=== PATIENT | female | born 1940 | race African-American/Black ===

== ENCOUNTER 2018-11-09 11:29 | Inpatient (IN) | payer OTHER ==
[~2018-11-09] VITALS: Ht 157.5 cm; Wt 46.7 kg
[2018-11-09 12:08] LABS: BASOPHILS % (AUTO) 0.2 % (0.0-5.0); HEMATOCRIT 28.7 % (36-48); LYMPHOCYTES % (AUTO) 7.4 % (21.0-51.0); MEAN CORPUSCULAR HEMOGLOBIN 29.9 pg (27.0-33.0); MEAN CORPUSCULAR HGB CONC 32.7 g/dL (32.0-36.0); MEAN CORPUSCULAR VOLUME 91.5 fL (79-99); MONOCYTES % (AUTO) 4.4 % (3.0-13.0); PLATELET COUNT (AUTO) 234 K/uL (130-400); RED BLOOD CELL COUNT(AUTO) 3.14 MIL/uL (4.00-5.50); RED CELL DISTRIBUTION WIDTH 14.1 % (11.0-15.5); WHITE BLOOD COUNT (AUTO) 11.7 K/uL (4.8-10.8)
[2018-11-09 12:21] LABS: INR 1.04 (0.85-1.15); PARTIAL THROMBOPLASTIN TIME 22.2 SEC (26.3-35.5); PROTHROMBIN TIME 10.9 SEC (9.6-11.6)
[2018-11-09 12:22] LABS: ALBUMIN 3.9 g/dL (3.5-5.0); BILIRUBIN,TOTAL 0.6 mg/dL (0.2-1.0); POTASSIUM 3.6 mmol/L (3.5-5.1); TOTAL PROTEIN, SERUM 7.8 g/dL (6.0-8.3)
[2018-11-09] MEDS ORDERED: INSULIN HUMULIN R 100 UNIT/ML 3ML ONE ×2 (13:25→16:33)
[2018-11-09] MEDS ORDERED: SODIUM CHLORIDE 0.9% 1000ML 1,000 ML IV ONE ×2 (14:02→16:01)
[2018-11-09] MEDS ORDERED: HALOPERIDOL LACTATE 5 MG/ML VIAL ONE (16:10)
[2018-11-09 17:22] LABS: CREATININE 1.2 mg/dL (0.5-1.5); POTASSIUM 4.3 mmol/L (3.5-5.1)
[2018-11-09] MEDS: SODIUM CHLORIDE 0.9% 1000ML 1,000 ML IV SCH (21:25)
[2018-11-09 21:30] VITALS: BP 102/39
[2018-11-09] MEDS: [UNRECOGNIZED DRUG - OTHER] SQ SCH (22:00)
[2018-11-09 23:10] VITALS: BP 123/47
[2018-11-10] MEDS: [UNRECOGNIZED DRUG - OTHER] SQ SCH ×8 (02:00→16:00)
[2018-11-10 03:00] VITALS: BP 164/79
[2018-11-10] MEDS: SODIUM CHLORIDE 0.9% 1000ML 1,000 ML IV SCH (06:35)
[2018-11-10 08:08] VITALS: BP 178/67
[2018-11-10 11:55] VITALS: BP 176/74
[2018-11-10 16:00] VITALS: BP_SYST 196; BP_SYST 197; BP_SYST 201; BP_DIAS 82; BP_DIAS 89; BP_DIAS 90
[2018-11-10] MEDS: INSULIN LISPRO 100 UNIT/ML 3ML SQ SCH ×2 (16:30→21:00)
[2018-11-10] MEDS ORDERED: ONDANSETRON ODT 4 MG TAB SL PRN (16:45)
--- NOTE | 2018-11-10 17:39 | NUR ---
DCP CM met with pt and daughter discussed dc plans. Pt is assist with ADL's prior to admission, lives at home with daughter. Pt has a walker and shower chair at time. Denies any other equipments/services. Pt feels safe to go back home, daughter able to assist with transportation and needs as necessary. DC plan to home once stable. CM to cont to follow up. Addendum: 11/10/18 at 1740 by RADHA STEIN LVN CM Amended: Links added.
[2018-11-10] MEDS: CLONIDINE HCL 0.1 MG TABLET PO PRN (17:42)
[2018-11-10 18:37] VITALS: BP 193/86
[2018-11-10 19:08] VITALS: BP 186/85
--- NOTE | 2018-11-10 19:32 | NUR ---
UNABLE TO START IV- ATTEMPTED TIME 4 . ONCOMING NURSE NOTIFIED TO TRY TO ATTEMPT. DR. FRANCISCO HERE TO SEE PATIENT. NEW ORDERS GIVEN TO ONCOMING NURSE
[2018-11-10] MEDS: METOPROLOL TARTRATE 25 MG TAB PO SCH (21:00)
[2018-11-10] MEDS: ATORVASTATIN CALCIUM 40 MG TABLET PO SCH (21:00)
[2018-11-11] VITALS (21 sets, daily range): BP systolic 98–187; BP diastolic 51–84
[2018-11-11] MEDS: HALOPERIDOL LACTATE 5 MG/ML VIAL IM PRN (04:22)
[2018-11-11] MEDS: INSULIN LISPRO 100 UNIT/ML 3ML SQ SCH ×3 (06:16→21:00)
--- NOTE | 2018-11-11 08:00 | NUR ---
AM SHIFT ASSESSMENT. NPO AFTER BKFT FOR EGD.
--- NOTE | 2018-11-11 08:09 | NUR ---
PATIENT UPDATE DR. FRANCISCO CAME TO SEE THE PT LAST NIGHT, ORDER RECEIVED FOR EGD WITH MAC AT NOON TIME, NPO POST A CLEAR LIQUID BREAKFAST. PIV RESTARTED, CONTINUES WITH THE NS AT 75 CC/HR. PT REMAINED ORIENTED X 1, REORIENTED X 3. DAUGHTER CAME LAST NIGHT AND BROUGHT PT'S HOME MEDS, SIGNED THE CONSENT FOR THE EGD WITH MAC TODAY. STARTED GETTING VERY DISORIENTED AT 0400, REFUSED BLOOD DRAWS, HALDOL 2MG GIVEN SLOW IV PUSH.
[2018-11-11] MEDS: METOPROLOL TARTRATE 25 MG TAB PO SCH (08:45)
[2018-11-11] MEDS: SERTRALINE HCL 50 MG TABLET PO SCH (09:00)
[2018-11-11] MEDS: DONEPEZIL HCL 5 MG TAB PO SCH (09:00)
[2018-11-11] MEDS: FAMOTIDINE 20MG TAB 20 MG TAB PO SCH (09:00)
[2018-11-11] MEDS: LINAGLIPTIN 5 MG TABLET PO SCH (09:00)
[2018-11-11] MEDS: SODIUM CHLORIDE 0.9% 1000ML 1,000 ML IV SCH (10:36)
[2018-11-11 13:20] LABS: NUCLEATED RED BLOOD CELLS 0.1 % (0.0-0.19)
[2018-11-11 13:24] LABS: CARBON DIOXIDE 28 mmol/L (21-32); CHLORIDE 109 mmol/L (101-111); CREATININE 0.6 mg/dL (0.5-1.5); GLOMERULAR FILTR. RATE CALC 124 mL/min (>60); GLUCOSE,RANDOM 111 mg/dL (70-105); SODIUM SERUM 145 mmol/L (136-145); UREA NITROGEN, BLOOD 18 mg/dL (7-18)
[2018-11-11 13:34] LABS: HEMATOCRIT 25.8 % (36-48); MEAN CORPUSCULAR HEMOGLOBIN 29.8 pg (27.0-33.0); MEAN CORPUSCULAR VOLUME 90.4 fL (79-99); PLATELET COUNT (AUTO) 127 K/uL (130-400); RED BLOOD CELL COUNT(AUTO) 2.85 MIL/uL (4.00-5.50); RED CELL DISTRIBUTION WIDTH 14.6 % (11.0-15.5); WHITE BLOOD COUNT (AUTO) 5.9 K/uL (4.8-10.8)
[2018-11-11 13:39] LABS: POTASSIUM 2.8 mmol/L (3.5-5.1)
[2018-11-11] MEDS ORDERED: POTASSIUM CHLORIDE 20MEQ/100ML 100 ML IV ONE (13:42)
[2018-11-11] MEDS ORDERED: LIDOCAINE HCL-MPF 1% 2ML VIAL ONE (13:42)
--- NOTE | 2018-11-11 16:59 | NUR ---
TO GI LAB NOW FOR EGD WITH J[facility]
[2018-11-11] MEDS ORDERED: MIDAZOLAM HCL 1 MG/ML 2ML VIAL ONE (18:41)
[2018-11-11] MEDS ORDERED: FENTANYL CITRATE PF 50 MCG/1 ML 2ML VIAL ONE (18:41)
[2018-11-11] MEDS ORDERED: ACETAMINOPHEN 325 MG TAB ONE (21:33)
[2018-11-11] MEDS: ATORVASTATIN CALCIUM 40 MG TABLET PO SCH (21:48)
[2018-11-12] VITALS (7 sets, daily range): BP systolic 96–188; BP diastolic 50–88
[2018-11-12] MEDS: SODIUM CHLORIDE 0.9% 1000ML 1,000 ML IV SCH ×3 (00:26→21:14)
[2018-11-12] MEDS: PANTOPRAZOLE SODIUM 40 MG TABLET.DR PO SCH ×3 (09:00→21:12)
[2018-11-12] MEDS: FAMOTIDINE 20MG TAB 20 MG TAB PO SCH (09:00)
[2018-11-12] MEDS: METOPROLOL TARTRATE 25 MG TAB PO SCH ×3 (09:00→21:13)
[2018-11-12] MEDS: INSULIN GLARGINE 100 UNITS/ML 10 ML VIAL SQ SCH ×2 (09:00→09:58)
[2018-11-12] MEDS: SERTRALINE HCL 50 MG TABLET PO SCH (09:00)
[2018-11-12] MEDS: LINAGLIPTIN 5 MG TABLET PO SCH (09:51)
[2018-11-12] MEDS: DONEPEZIL HCL 5 MG TAB PO SCH (09:51)
[2018-11-12] MEDS: INSULIN LISPRO 100 UNIT/ML 3ML SQ SCH (20:15)
[2018-11-12] MEDS: ATORVASTATIN CALCIUM 40 MG TABLET PO SCH (21:12)
[2018-11-13 00:05] VITALS: BP 175/73
[2018-11-13] MEDS: SODIUM CHLORIDE 0.9% 1000ML 1,000 ML IV SCH ×2 (01:15→21:41)
[2018-11-13] MEDS: CLONIDINE HCL 0.1 MG TABLET PO PRN (01:48)
[2018-11-13 03:59] VITALS: BP 136/62
[2018-11-13] MEDS ORDERED: DEXTROSE 50%-WATER 50 ML DISP.SYRIN IV ONE (06:13)
[2018-11-13] MEDS ORDERED: GLUCAGON 1MG KIT 1 MG ML IM PRN (06:15)
[2018-11-13] MEDS: INSULIN LISPRO 100 UNIT/ML 3ML SQ SCH ×4 (06:56→21:00)
[2018-11-13 07:37] VITALS: BP 128/51
--- NOTE | 2018-11-13 08:00 | NUR ---
sitting up in bed, awake and with the program.
[2018-11-13] MEDS: INSULIN GLARGINE 100 UNITS/ML 10 ML VIAL SQ SCH (09:00)
[2018-11-13] MEDS: LINAGLIPTIN 5 MG TABLET PO SCH (09:00)
[2018-11-13] MEDS: FAMOTIDINE 20MG TAB 20 MG TAB PO SCH (09:58)
[2018-11-13] MEDS: METOPROLOL TARTRATE 25 MG TAB PO SCH ×2 (09:58→21:44)
[2018-11-13] MEDS: SERTRALINE HCL 50 MG TABLET PO SCH (09:59)
[2018-11-13] MEDS: PANTOPRAZOLE SODIUM 40 MG TABLET.DR PO SCH ×2 (09:59→21:44)
[2018-11-13] MEDS: DONEPEZIL HCL 5 MG TAB PO SCH (10:03)
[2018-11-13 11:38] VITALS: BP 122/49
[2018-11-13 15:31] VITALS: BP 126/52
--- NOTE | 2018-11-13 18:00 | NUR ---
DISCUSSED DM DIET, FOOT CARE, ETC. AND REALLY SEEMS TO UNDERSTAND HER DIABETES, STATES HAS A PROVIDER THAT PREPARES HER MEALS AND ASST. WITH HER MEDICATIONS. PT. FEELS VERY COMFORTABLE GOING HOME AND TELLS ME SHE IS READY TO GO.
[2018-11-13 20:00] VITALS: BP 111/58
[2018-11-13] MEDS: ATORVASTATIN CALCIUM 40 MG TABLET PO SCH (21:44)
[2018-11-14] VITALS (7 sets, daily range): BP systolic 128–157; BP diastolic 58–74
[2018-11-14] MEDS: SODIUM CHLORIDE 0.9% 1000ML 1,000 ML IV SCH ×2 (03:55→16:31)
[2018-11-14] MEDS: INSULIN LISPRO 100 UNIT/ML 3ML SQ SCH ×3 (05:31→16:30)
[2018-11-14 08:35] LABS: CREATININE 0.6 mg/dL (0.5-1.5)
[2018-11-14 08:47] LABS: HEMATOCRIT 28.8 % (36-48); MEAN CORPUSCULAR HEMOGLOBIN 30.3 pg (27.0-33.0); MEAN CORPUSCULAR HGB CONC 33.4 g/dL (32.0-36.0); MEAN CORPUSCULAR VOLUME 90.9 fL (79-99); NUCLEATED RED BLOOD CELLS 0.1 % (0.0-0.19); PLATELET COUNT (AUTO) 210 K/uL (130-400); RED BLOOD CELL COUNT(AUTO) 3.17 MIL/uL (4.00-5.50); RED CELL DISTRIBUTION WIDTH 13.9 % (11.0-15.5); WHITE BLOOD COUNT (AUTO) 5.6 K/uL (4.8-10.8)
[2018-11-14] MEDS: INSULIN GLARGINE 100 UNITS/ML 10 ML VIAL SQ SCH (09:00)
[2018-11-14] MEDS: SERTRALINE HCL 50 MG TABLET PO SCH (10:55)
[2018-11-14] MEDS: LINAGLIPTIN 5 MG TABLET PO SCH (10:55)
[2018-11-14] MEDS: METOPROLOL TARTRATE 25 MG TAB PO SCH ×2 (10:55→21:38)
[2018-11-14] MEDS: PANTOPRAZOLE SODIUM 40 MG TABLET.DR PO SCH ×2 (10:55→21:38)
[2018-11-14] MEDS: DONEPEZIL HCL 5 MG TAB PO SCH (10:55)
[2018-11-14] MEDS: FAMOTIDINE 20MG TAB 20 MG TAB PO SCH (13:13)
[2018-11-14] MEDS: POTASSIUM CHLORIDE 20MEQ/100ML 100 ML IV PRN (19:20)
[2018-11-14] MEDS: LIDOCAINE HCL-MPF 1% 2ML VIAL IVP PRN (19:21)
[2018-11-14] MEDS: ATORVASTATIN CALCIUM 40 MG TABLET PO SCH (21:38)
[2018-11-15] MEDS: INSULIN LISPRO 100 UNIT/ML 3ML SQ SCH ×5 (00:43→21:00)
[2018-11-15] MEDS: POTASSIUM CHLORIDE 20MEQ/100ML 100 ML IV PRN (00:52)
[2018-11-15] MEDS: LIDOCAINE HCL-MPF 1% 2ML VIAL IVP PRN (00:52)
[2018-11-15 04:08] VITALS: BP 151/71
[2018-11-15] MEDS: SODIUM CHLORIDE 0.9% 1000ML 1,000 ML IV SCH ×2 (06:30→21:53)
[2018-11-15 07:07] VITALS: BP 169/70
[2018-11-15] MEDS: INSULIN GLARGINE 100 UNITS/ML 10 ML VIAL SQ SCH (09:00)
[2018-11-15 11:49] VITALS: BP 137/77
[2018-11-15] MEDS: DONEPEZIL HCL 5 MG TAB PO SCH (12:45)
[2018-11-15] MEDS: LINAGLIPTIN 5 MG TABLET PO SCH (12:45)
[2018-11-15] MEDS: FAMOTIDINE 20MG TAB 20 MG TAB PO SCH (12:45)
[2018-11-15] MEDS: METOPROLOL TARTRATE 25 MG TAB PO SCH ×2 (12:45→21:53)
[2018-11-15] MEDS: PANTOPRAZOLE SODIUM 40 MG TABLET.DR PO SCH ×2 (12:45→21:53)
[2018-11-15] MEDS: SERTRALINE HCL 50 MG TABLET PO SCH (12:46)
--- NOTE | 2018-11-15 14:47 | NUR ---
DR. BING GUZMAN NOTIFIED OF H. PYLORI POSITIVE RESULTS. ALSO GAVE ORDERS FOR FOR CASE MANAGEMENT EVAL FOR DISCHARGE PLANNING TO SNF, SPECIFIED POSSIBLE [facility].
[2018-11-15 16:00] VITALS: BP 116/50
[2018-11-15 20:25] VITALS: BP 143/67
[2018-11-15] MEDS: ATORVASTATIN CALCIUM 40 MG TABLET PO SCH (21:53)
[2018-11-16] VITALS: BP 145/59
[2018-11-16 04:39] VITALS: BP 163/76
[2018-11-16] MEDS: INSULIN LISPRO 100 UNIT/ML 3ML SQ SCH ×4 (06:10→21:00)
[2018-11-16 08:00] VITALS: BP 127/67
[2018-11-16] MEDS: SODIUM CHLORIDE 0.9% 1000ML 1,000 ML IV SCH ×2 (10:01→22:12)
[2018-11-16] MEDS: DONEPEZIL HCL 5 MG TAB PO SCH (10:01)
[2018-11-16] MEDS: LINAGLIPTIN 5 MG TABLET PO SCH (10:01)
[2018-11-16] MEDS: SERTRALINE HCL 50 MG TABLET PO SCH (10:01)
[2018-11-16] MEDS: METOPROLOL TARTRATE 25 MG TAB PO SCH ×2 (10:02→22:05)
[2018-11-16] MEDS: PANTOPRAZOLE SODIUM 40 MG TABLET.DR PO SCH ×2 (10:02→22:05)
[2018-11-16] MEDS: FAMOTIDINE 20MG TAB 20 MG TAB PO SCH (10:02)
[2018-11-16] MEDS: INSULIN GLARGINE 100 UNITS/ML 10 ML VIAL SQ SCH (10:05)
[2018-11-16 11:07] VITALS: BP 155/70
--- NOTE | 2018-11-16 12:25 | NUR ---
CM Note: [facility] pending ins auth and acceptance CM spoke to daughter Hayley Mclean, made aware of MD rec for short term rehab, daughter agreeable, telephone consent CHRISTINE signed for [facility]. Faxed order, clininicals, and pasrr. Spoke to Alexa w/[facility], will come eval pt, aware pt pending PT eval and treat, will send notes as soon as available. EMS form semi-filled out pending to be faxed w/current date, primary nurse to call [facility] once pt ready to DC. Primary nurse aware. CM to cont to follow up.
[2018-11-16] MEDS: HALOPERIDOL LACTATE 5 MG/ML VIAL IM PRN (15:32)
[2018-11-16 16:19] VITALS: BP 134/61
--- NOTE | 2018-11-16 16:21 | NUR ---
CM Note: [facility] pending ins auth Spoke to Alexa, received PT notes sent to insurance already. Pt pending ins auth at this time. Primary nurse aware. CM to cont to follow up.
[2018-11-16] MEDS ORDERED: SERT25TA5 PO (19:38)
[2018-11-16] MEDS ORDERED: METO25TA6 PO (19:38)
[2018-11-16] MEDS ORDERED: LINA5TAB PO (19:38)
[2018-11-16] MEDS ORDERED: ATOR40TA69 PO (19:38)
[2018-11-16] MEDS ORDERED: TRAM-355 PO (19:38)
[2018-11-16] MEDS ORDERED: OMEP40CA37 PO (19:38)
[2018-11-16] MEDS ORDERED: DONE10TA36 PO (19:38)
[2018-11-16 20:06] VITALS: BP 150/58
[2018-11-16] MEDS: ATORVASTATIN CALCIUM 40 MG TABLET PO SCH (22:05)
[2018-11-17 00:27] VITALS: BP 120/51
[2018-11-17 04:00] VITALS: BP 126/50
[2018-11-17] MEDS: INSULIN LISPRO 100 UNIT/ML 3ML SQ SCH ×4 (06:47→20:41)
[2018-11-17 07:00] VITALS: BP 126/57
[2018-11-17] MEDS: INSULIN GLARGINE 100 UNITS/ML 10 ML VIAL SQ SCH (09:00)
[2018-11-17] MEDS: SERTRALINE HCL 50 MG TABLET PO SCH (09:03)
[2018-11-17] MEDS: PANTOPRAZOLE SODIUM 40 MG TABLET.DR PO SCH ×2 (09:03→20:38)
[2018-11-17] MEDS: DONEPEZIL HCL 5 MG TAB PO SCH (09:03)
[2018-11-17] MEDS: FAMOTIDINE 20MG TAB 20 MG TAB PO SCH (09:03)
[2018-11-17] MEDS: LINAGLIPTIN 5 MG TABLET PO SCH (09:03)
[2018-11-17] MEDS: METOPROLOL TARTRATE 25 MG TAB PO SCH ×2 (09:03→20:38)
[2018-11-17] MEDS: SODIUM CHLORIDE 0.9% 1000ML 1,000 ML IV SCH (11:40)
--- NOTE | 2018-11-17 12:44 | NUR ---
CM Note: Cont w/dcp to [facility], pending ins auth CM spoke to pt's daughter Hayley Mclean, informed of change plan yesterday from another sister Maria Elena Ho, as per sister Hayley cont w/[facility] it is sister company w/[facility], daughter Hayley made Maria Elena Ho aware, disregard [facility], cont w/[facility] referral. Pt pending ins auth at this time. Pt aware of poc, spoke to [facility] rep this morning. Primary nurse aware. CM to cont to follow up.
--- NOTE | 2018-11-17 16:38 | NUR ---
Nutrition intervention: Nutrition notification as LOS x8. Pt admitted for DKA. At time of RD visit no visitors present. Spoke to pt's RN-Timur, states pt has AMS and education is not appropriate. Diet education materials left in d/c folder for family member at d/c. Please consult RD as nutrition concerns arise. Addendum: 11/17/18 at [address] Amended: Links added.
[2018-11-17 20:00] VITALS: BP 124/58
[2018-11-17] MEDS: ATORVASTATIN CALCIUM 40 MG TABLET PO SCH (20:38)
[2018-11-18] VITALS: BP 141/60
[2018-11-18] MEDS: SODIUM CHLORIDE 0.9% 1000ML 1,000 ML IV SCH ×2 (01:03→14:40)
[2018-11-18 04:00] VITALS: BP 143/59
[2018-11-18] MEDS: INSULIN LISPRO 100 UNIT/ML 3ML SQ SCH ×4 (05:50→21:00)
[2018-11-18 07:40] VITALS: BP 157/66
--- NOTE | 2018-11-18 08:00 | NUR ---
Pt has no BM on my shift,no s/s hypoglycemia.Bedside report given to incoming NOD.
[2018-11-18] MEDS ORDERED: BISACODYL 5 MG TABLET.DR PO PRN (09:30)
[2018-11-18] MEDS ORDERED: LACTULOSE 20 GM/30 ML UDCUP PO PRN (09:30)
[2018-11-18] MEDS: LINAGLIPTIN 5 MG TABLET PO SCH (09:34)
[2018-11-18] MEDS: DONEPEZIL HCL 5 MG TAB PO SCH (09:34)
[2018-11-18] MEDS: SERTRALINE HCL 50 MG TABLET PO SCH (09:35)
[2018-11-18] MEDS: PANTOPRAZOLE SODIUM 40 MG TABLET.DR PO SCH ×2 (09:35→19:50)
[2018-11-18] MEDS: FAMOTIDINE 20MG TAB 20 MG TAB PO SCH (09:35)
[2018-11-18] MEDS: METOPROLOL TARTRATE 25 MG TAB PO SCH ×2 (09:39→19:50)
[2018-11-18] MEDS: INSULIN GLARGINE 100 UNITS/ML 10 ML VIAL SQ SCH (10:04)
[2018-11-18 12:20] VITALS: BP 175/77
[2018-11-18 17:12] VITALS: BP 158/76
[2018-11-18] MEDS: ATORVASTATIN CALCIUM 40 MG TABLET PO SCH (19:50)
[2018-11-18 20:00] VITALS: BP 111/57
[2018-11-19] VITALS: BP 137/60
[2018-11-19] MEDS: SODIUM CHLORIDE 0.9% 1000ML 1,000 ML IV SCH ×2 (03:55→17:15)
[2018-11-19 04:00] VITALS: BP 126/50
[2018-11-19] MEDS: INSULIN LISPRO 100 UNIT/ML 3ML SQ SCH ×4 (06:59→21:33)
[2018-11-19 08:00] VITALS: BP 180/70
--- NOTE | 2018-11-19 10:00 | NUR ---
NANCY RUIZ: Spoke w Alexa Chawla this morning regarding status of ins auth for admission to their facility. She mentions that at this time they are still pending insurance approval. CM to continue to follow.
[2018-11-19] MEDS: DONEPEZIL HCL 5 MG TAB PO SCH (10:07)
[2018-11-19] MEDS: FAMOTIDINE 20MG TAB 20 MG TAB PO SCH (10:07)
[2018-11-19] MEDS: METOPROLOL TARTRATE 25 MG TAB PO SCH ×2 (10:07→21:32)
[2018-11-19] MEDS: LINAGLIPTIN 5 MG TABLET PO SCH (10:07)
[2018-11-19] MEDS: PANTOPRAZOLE SODIUM 40 MG TABLET.DR PO SCH ×2 (10:08→21:32)
[2018-11-19] MEDS: SERTRALINE HCL 50 MG TABLET PO SCH (10:08)
[2018-11-19] MEDS: INSULIN GLARGINE 100 UNITS/ML 10 ML VIAL SQ SCH (10:15)
[2018-11-19 12:00] VITALS: BP 164/68
[2018-11-19 16:00] VITALS: BP 153/53
[2018-11-19 19:43] VITALS: BP 128/55
[2018-11-19] MEDS: ATORVASTATIN CALCIUM 40 MG TABLET PO SCH (21:32)
[2018-11-20] VITALS (7 sets, daily range): BP systolic 117–159; BP diastolic 43–60
[2018-11-20] MEDS: SODIUM CHLORIDE 0.9% 1000ML 1,000 ML IV SCH ×2 (06:04→19:55)
[2018-11-20] MEDS: INSULIN LISPRO 100 UNIT/ML 3ML SQ SCH ×4 (06:04→21:00)
[2018-11-20] MEDS: FAMOTIDINE 20MG TAB 20 MG TAB PO SCH (08:42)
[2018-11-20] MEDS: METOPROLOL TARTRATE 25 MG TAB PO SCH ×3 (08:42→20:12)
[2018-11-20] MEDS: SERTRALINE HCL 50 MG TABLET PO SCH (08:42)
[2018-11-20] MEDS: LINAGLIPTIN 5 MG TABLET PO SCH (08:42)
[2018-11-20] MEDS: PANTOPRAZOLE SODIUM 40 MG TABLET.DR PO SCH ×2 (08:42→20:11)
[2018-11-20] MEDS: INSULIN GLARGINE 100 UNITS/ML 10 ML VIAL SQ SCH (08:45)
[2018-11-20] MEDS: DONEPEZIL HCL 5 MG TAB PO SCH (08:45)
[2018-11-20] MEDS: ATORVASTATIN CALCIUM 40 MG TABLET PO SCH (20:11)
[2018-11-21 04:00] VITALS: BP 130/57
[2018-11-21] MEDS: DEXTROSE 50%-WATER 50 ML DISP.SYRIN IV PRN ×2 (06:00→23:11)
[2018-11-21] MEDS: INSULIN LISPRO 100 UNIT/ML 3ML SQ SCH ×4 (06:32→21:00)
[2018-11-21 07:00] VITALS: BP 111/46
[2018-11-21] MEDS: DONEPEZIL HCL 5 MG TAB PO SCH (08:57)
[2018-11-21] MEDS: METOPROLOL TARTRATE 25 MG TAB PO SCH ×2 (08:57→23:00)
[2018-11-21] MEDS: LINAGLIPTIN 5 MG TABLET PO SCH (08:58)
[2018-11-21] MEDS: FAMOTIDINE 20MG TAB 20 MG TAB PO SCH (08:58)
[2018-11-21] MEDS: SERTRALINE HCL 50 MG TABLET PO SCH (08:58)
[2018-11-21] MEDS: PANTOPRAZOLE SODIUM 40 MG TABLET.DR PO SCH ×2 (08:59→20:33)
[2018-11-21] MEDS: INSULIN GLARGINE 100 UNITS/ML 10 ML VIAL SQ SCH (09:00)
[2018-11-21] MEDS: SODIUM CHLORIDE 0.9% 1000ML 1,000 ML IV SCH (09:15)
[2018-11-21 11:00] VITALS: BP 119/52
[2018-11-21 16:00] VITALS: BP 109/51
--- NOTE | 2018-11-21 17:12 | NUR ---
INFORMED DR SMART DURING ROUNDS ON TREND OF GLUCOMETER AMA FLANAGAN EARLY EACH MORNING WITH TODAYS LEVEL IN 50S IN 0600M Addendum: 11/21/18 at 1715 by SAQIB BOWMAN RN RN CORRECTION: AT 0600AM .. PER DR SMATR CONT WITH ANGEL ChinchillaUNITS CHANGE FOR NOW , WILL CONT TO MONITOR
[2018-11-21 19:28] VITALS: BP 114/61
[2018-11-21] MEDS: ATORVASTATIN CALCIUM 40 MG TABLET PO SCH (20:33)
--- NOTE | 2018-11-21 23:35 | NUR ---
NURSING NOTE PAGED DR. SMART TO INFORM HIM ABOUT THE PT'S BLOOD SUGAR THAT DROPPED. BLOOD SUGAR DROPPED TO 39, AFTER ORANGE JUICE WAS GIVEN. D50 GIVEN TO PT AT 2310 AND WITH BLOOD SUGAR RECHECK OF 149. WAITING FOR DOCTOR TO CALL BACK
[2018-11-22] VITALS (10 sets, daily range): BP systolic 101–155; BP diastolic 41–83
--- NOTE | 2018-11-22 01:07 | NUR ---
Nursing Note Answering service called back to ask if Dr. Taylor has called me back. I informed them no that he hasn't. Answering service told me that they have paged Dr. Taylor multiple times and he hasn't returned their phone call. Still pending call back from Dr. Taylor
[2018-11-22] MEDS: INSULIN LISPRO 100 UNIT/ML 3ML SQ SCH ×2 (07:06→20:54)
[2018-11-22] MEDS: METOPROLOL TARTRATE 25 MG TAB PO SCH ×2 (08:39→21:00)
[2018-11-22] MEDS: LINAGLIPTIN 5 MG TABLET PO SCH (08:39)
[2018-11-22] MEDS: DONEPEZIL HCL 5 MG TAB PO SCH (08:39)
[2018-11-22] MEDS: FAMOTIDINE 20MG TAB 20 MG TAB PO SCH (08:39)
[2018-11-22] MEDS: PANTOPRAZOLE SODIUM 40 MG TABLET.DR PO SCH ×2 (08:40→20:50)
[2018-11-22] MEDS: SERTRALINE HCL 50 MG TABLET PO SCH (08:41)
--- NOTE | 2018-11-22 13:30 | NUR ---
ACCEPTED AT [facility] RN ADVISED STATES SHE WOULD CALL DR. SMART Addendum: 11/23/18 at 1427 by ASYA MORGAN RN CM Amended: Links added.
--- NOTE | 2018-11-22 14:00 | NUR ---
INFORMED DR SMART ON HOLDING MORINING LANTUS 25UNITS IN AM DUE TO PATIENT AGAIN TRENDING HER BLOOD SUGAR TO 30S AND THIS MORNING AT 74 WITH NOON RESULT OF 99. ASLO LET HIM KNOW PT ACCEPTING TO [facility] PER CM . NO FURTHER ORDERS GIVE AT THIS TME
--- NOTE | 2018-11-22 14:01 | NUR ---
ORDER CANCELED. ORDER ENTERED IN ERROR. NURSE [facility] REPORTS NO ISSUES WITH Pt AT THIS TIME. Addendum: 11/22/18 at 1402 by LILLIAN SHANNON, [facility] Amended: Links added.
--- NOTE | 2018-11-22 17:00 | NUR ---
UPDATE W RN- PT GOING [facility] TO [facility]? CALL RECD FROM BRITNI AT [facility], ASKED IS PT COMING TO [facility]? ASKED HER TO CALL [facility] DIRECTLY- RN LAST STATED TO THAT SHE WAS GETTING FINAL MED REC FROM DR. SMART, PENDING CALL BACK. STATEE SHE WOULD CALL NURSE DIRECTLY TO FIND OUT ETA SHE WAS NONA SCALES, Addendum: 11/23/18 at 1431 by ASYA MORGAN RN Amended: Links added.
[2018-11-22] MEDS: ATORVASTATIN CALCIUM 40 MG TABLET PO SCH (20:50)
[2018-11-23 00:10] VITALS: BP 127/50
[2018-11-23 04:10] VITALS: BP 141/59
[2018-11-23] MEDS: INSULIN LISPRO 100 UNIT/ML 3ML SQ SCH ×3 (07:02→16:30)
--- NOTE | 2018-11-23 08:05 | NUR ---
UPDATED DEB [facility]--- PT ACCEPTED AT [facility] ADVISED RN THAT PT WAS ACCEPTED AT [facility] AND TO PLS GET FINAL MED ORDERS FROM [facility] PEREZ CM THAT HE WOUD DO Addendum: 11/23/18 at 1438 by ASYA MORGAN RN CM Amended: Links added.
[2018-11-23 08:57] VITALS: BP 153/63
[2018-11-23] MEDS: INSULIN GLARGINE 100 UNITS/ML 10 ML VIAL SQ SCH ×2 (09:00→12:48)
[2018-11-23 11:53] VITALS: BP 152/64
[2018-11-23] MEDS: DONEPEZIL HCL 5 MG TAB PO SCH (12:19)
[2018-11-23] MEDS: METOPROLOL TARTRATE 25 MG TAB PO SCH (12:19)
[2018-11-23] MEDS: PANTOPRAZOLE SODIUM 40 MG TABLET.DR PO SCH (12:19)
[2018-11-23] MEDS: SERTRALINE HCL 50 MG TABLET PO SCH (12:20)
[2018-11-23] MEDS: FAMOTIDINE 20MG TAB 20 MG TAB PO SCH (12:20)
[2018-11-23] MEDS: LINAGLIPTIN 5 MG TABLET PO SCH (12:20)
[2018-11-23 16:00] VITALS: BP 145/67
--- NOTE | 2018-11-23 17:00 | NUR ---
PATIENT DISCHARGE EDUCATION GIVEN, DENIES ANY CONCERNS OR QUESTIONS AT THIS TIME. AAOX3, IV OUT INTACT, NO BLEEDING, NO SOB, DENIES ANY DISCOMFORT. REPORT GIVEN TO LVN. IFRAH FROM [facility]. EDUCATION GIVEN ON; FOLLOW UP WITH DR. FRANCISCO ON 12/05/2018 AT 09:30AM. CALL IF UNABLE TO ATTEND APPOINTMENT AT [phone]. FOLLOW UP WITH YOUR PRIMARY DOCTOR IN 1 WEEK. CALL TO SET UP AN APPOINTMENT. YOU WILL CONTINUE THERAPY AT [facility] RECOMMMENDED. IF HAVING SHORTNESS OF BREATH OR CHEST PAIN THAT DOES NOT RESOLVE WITH REST. DIABETIC EDUCATION, ON HYPO AND HYPER SYMPTOMS AND WHEN TO CALL MD OR 911. WILL KEEP EDUCATING PATIENT UPON DISCHARGE TO [facility] REPORT WAS GIVEN TO IFRAH NURSE TO FOLLOW UP WITH DM EDUCATION TYPE 2.
--- NOTE | 2018-11-23 18:55 | NUR ---
PENDING TO [facility] STAFF TO TRANSFER PATIENT TO [facility].
== END 2018-11-23 19:15 | DRG 380 ==
LOC: EDH 11:29 → EDHIP 14:11 → 3BH 20:38 → 3CH 11-19 18:13
PROVIDERS: ADMIT Internal Medicine; ATTEND Internal Medicine
PROC: 0DB38ZX Excision of Lower Esophagus, Via Natural or Artificial Opening Endoscopic, Diagnostic (ICD-10-PCS; principal; 2018-11-11)
PROC: 0DB68ZX Excision of Stomach, Via Natural or Artificial Opening Endoscopic, Diagnostic (ICD-10-PCS; 2018-11-11)
DX: K22.11 Ulcer of esophagus with bleeding (principal); E11.10 Type 2 diabetes mellitus with ketoacidosis without coma; D62 Acute posthemorrhagic anemia; F05 Delirium due to known physiological condition; K29.01 Acute gastritis with bleeding; K92.0 Hematemesis; I10 Essential (primary) hypertension; R62.7 Adult failure to thrive; K21.0 Gastro-esophageal reflux disease with esophagitis; K44.9 Diaphragmatic hernia without obstruction or gangrene; E78.5 Hyperlipidemia, unspecified; F02.80 Dementia in other diseases classified elsewhere, unspecified severity, without behavioral disturbance, psychotic disturbance, mood disturbance, and anxiety; F32.9 Major depressive disorder, single episode, unspecified; G30.9 Alzheimer's disease, unspecified; K21.9 Gastro-esophageal reflux disease without esophagitis; Z79.4 Long term (current) use of insulin; Z86.718 Personal history of other venous thrombosis and embolism; Z87.11 Personal history of peptic ulcer disease; Z91.14 Patient's other noncompliance with medication regimen; Z91.19 Patient's noncompliance with other medical treatment and regimen; Z95.828 Presence of other vascular implants and grafts; B96.81 Helicobacter pylori [H. pylori] as the cause of diseases classified elsewhere
CPT/HCPCS: 36415; 43239; 71045; 80048; 80053; 82010; 82270; 82947; 82948; 83690; 84132; 84484; 85025; 85027; 85610; 85730; 86677; 86850; 86900; 86901; 88305; 93005; 97039; 99152; G0378; J1630; J1815; J2250; J3010; J3480; J3490; J7030; J7070

== ENCOUNTER → 2018-12-29 | Outpatient (CLI) | payer OTHER ==
[~2018-12-29] MED LIST: ATOR40TA69 PO; DONE10TA36 PO; LINA5TAB PO; METO25TA6 PO; OMEP40CA37 PO; SERT25TA5 PO; TRAM-355 PO
== END | disposition home or self-care (01) ==
LOC: RAH 10:53
PROVIDERS: ATTEND Internal Medicine
DX: N85.2 Hypertrophy of uterus (principal)
CPT/HCPCS: 76830